=== PATIENT | female | born 1945 | race Caucasian/White ===

== ENCOUNTER 2021-09-11 19:23 | Inpatient (IN) | payer OTHER, MEDICAID, SELFPAY ==
[~2021-09-11] VITALS: Ht 154.9 cm; Wt 77.1 kg
[2021-09-11 19:28] VITALS: BP 115/56
--- NOTE | 2021-09-11 19:40 | NUR ---
PT TAKEN TO ER BED 11 VIA WHEELCHAIR
--- NOTE | 2021-09-11 20:00 | NUR ---
ERMD AT BEDSIDE
--- NOTE | 2021-09-11 20:15 | NUR ---
PT TO BATHROOM
[2021-09-11] MEDS ORDERED: NACL 0.9% 1,000 ML IV ONE (20:40)
--- NOTE | 2021-09-11 21:00 | NUR ---
PT BACK FROM BATHROOM LARGE AMOUT OF BLOOD LOSS NOTED. PT APPEARS WEAK AND PALE WILL ATTEMPT TO START IV TO BEGIN IVF. PER FAMILY PT IS A HARD STICK.
[2021-09-11 21:22] LABS: BASOPHILS % (AUTO) 0.1 % (0.0-2.0); EOSINOPHILS % (AUTO) 0.1 % (0.0-4.0); LYMPHOCYTES # (AUTO) 0.9 K/uL (2.5-16.5); MEAN CORPUSCULAR HEMOGLOBIN 31 pg (27-31); MEAN CORPUSCULAR HGB CONC 34 g/dL (33-37); MEAN CORPUSCULAR VOLUME 90.1 fL (80-94); MONOCYTES # (AUTO) 0.5 K/uL (0.8-1.0); MONOCYTES % (AUTO) 5.3 % (1.7-9.3); NEUTROPHILS # (AUTO) 8.3 K/uL (1.8-7.7); NEUTROPHILS % (AUTO) 85.5 % (42.2-75.2); PLATELET COUNT (AUTO) 176 K/uL (140-450); RED BLOOD CELL COUNT(AUTO) 2.04 MIL/uL (4.20-5.40); WHITE BLOOD COUNT (AUTO) 9.7 K/uL (4.8-10.8)
[2021-09-11 21:44] LABS: HEMOGLOBIN 6.3 g/dL (12.0-16.0)
[2021-09-11 21:45] LABS: HEMATOCRIT 18.4 % (36-48)
[2021-09-11 22:32] LABS: ALBUMIN 2.5 g/dL (3.4-5.0); ANION GAP 10.8 (8-16); ASPARTATE AMINOTRANSFERASE 13 U/L (15-37); CHLORIDE 111 mmol/L (98-107); CREATININE 0.5 mg/dL (0.6-1.3); GLUCOSE 187 mg/dL (74-106); POTASSIUM 3.8 mmol/L (3.5-5.1); SODIUM SERUM 143 mmol/L (136-145); TOTAL BILIRUBIN 0.3 mg/dL (0.0-1.0); UREA NITROGEN, BLOOD 18 mg/dL (7-18)
--- NOTE | 2021-09-11 22:35 | NUR ---
SWAB FOR MARILYNN SENT TO LAB
[2021-09-11] MEDS ORDERED: MORPHINE SULFATE 2 MG/ML SYR IVP PRN (22:55)
[2021-09-11] MEDS ORDERED: NACL 0.9% 1,000 ML IV SCH (22:55)
[2021-09-11] MEDS ORDERED: ONDANSETRON 4 MG/2 ML VIAL IM/IVP PRN (22:55)
[2021-09-11] MEDS ORDERED: HYDROcodone/APAP 5/325 MG 1 TAB TAB PO PRN (22:55)
[2021-09-11] MEDS ORDERED: DOCUSATE SODIUM 100 MG GELCAP PO PRN (22:55)
[2021-09-11] MEDS ORDERED: SODIUM PHOS / POTASSIUM PHOS 1 PKT PDR PO PRN (22:55)
[2021-09-11] MEDS ORDERED: ACETAMINOPHEN 325 MG TAB PO PRN (22:55)
[2021-09-11] MEDS ORDERED: MAG SULF 2000 MG/WATER PREMIX 50 ML IV PRN (22:55)
[2021-09-11] MEDS ORDERED: DEXTROSE 50% 50 ML SYR IVP PRN (23:00)
--- NOTE | 2021-09-11 23:00 | NUR ---
PT LAYING ON GURNEY WITH EYES CLOSED. RRE/U FAMILY AT BEDSIDE. NAD NOTED PENDING BED ASSIGNMENT
[2021-09-11 23:13] LABS: PROTHROMBIN TIME 10.8 secs (10.8-13.4)
[2021-09-11] MEDS ORDERED: DULO60EC1 PO (23:20)
[2021-09-11] MEDS ORDERED: SIMV-33 PO (23:20)
[2021-09-11] MEDS ORDERED: METF-1243 PO (23:20)
[2021-09-11 23:32] LABS: MAGNESIUM 1.7 mg/dL (1.8-2.4); PHOSPHORUS 2.8 mg/dL (2.5-4.9)
--- NOTE | 2021-09-12 | NUR ---
REPORT TO COLLIN BLACKMAN
--- NOTE | 2021-09-12 00:05 | NUR ---
Patient will be admitted to care of [facility]. Admited to TELE. Will go to room 3085. Belongings list completed. Report to
[2021-09-12 00:15] VITALS: BP 114/54
--- NOTE | 2021-09-12 00:30 | NUR ---
PT CAME UP VIA [employer]. REPORT GIVEN OVER THE PHONE FORM MARINE FIREFIGHTER NURSE, PT IS AOX4 ON ROOM AIR,SKIN INTACT SHE HAS A 20G ON LEFT AC INTACT AND ASYMPTOMATIC. MRSA SWAB DONE ADMISSION V/S FOLLOWS: T 98.4 P 98 R 20 B/P 114/54 02 100% ON ROOM AIR. DAUGHTER CALLED AND WAS UPDATED. ADMISSION QUESTIONS INCLUDING THE CONSENT FOR BLOOD TRANSFUSION TRANSLATED WITH [employer] . ALL FALLS PRECAUTIONS IN PLACE. DUE TO PT GENERALIZED WEAKNESS DUE TO ANEMIA.
--- NOTE | 2021-09-12 02:30 | NUR ---
PT CONTINUES ON BEDREST. SHE HAS NO C/O VOICED, ALL REQUESTED NEEDS ATTENDED BY STAFF. 1 UNIT OF PACKED RED BLOOD CELLS HUNG AND RUNNING AT 100MLS/HR. NO ADVERSE EFFECTS NOTED.
[2021-09-12 04:00] VITALS: BP 114/58
--- NOTE | 2021-09-12 04:30 | NUR ---
BLOOD TRANSFUSION ALMOST COMPLETED. NO ADVERSE REACTIONS NOTED. V/S FOLLOWS: T 98.4 P 112 R 22 B/P 114/58 02 98% ON ROOM AIR. PT ASSISTED WITH BED PIRES AND PASSED BLOODY URINE AND BLOOD CLOTS. PT WANTS TO SIT ON BED PIRES.
--- NOTE | 2021-09-12 05:16 | NUR ---
TRANSFUSION COMPLETED. PT HAD ANOTHER EPISODE OF MIGUEL RECTAL BLEEDING. PT WAS TURNED AND CHANGED V/S FOLLOWS: T 98.4 P 110 R 20 B/P 98/52 02 98% ON ROOM AIR.
--- NOTE | 2021-09-12 06:20 | NUR ---
2ND UNIT OF BLOOD STARTED. V/S S FOLLOWS: T 97.9 P 103 R 20 B/P 106/55 02 96% ON ROOM AIR. ALL FALLS PRECAUTIONS IN PLACE.
--- NOTE | 2021-09-12 07:30 | NUR ---
RECEIVED PATIENT FROM B2B SALES CONSULTANT NURSE FOR CONTINUITY OF CARE. PATIENT IS ON TELE MONITOR. A/A/O X4. RESPIRATORY EVEN AND UNLABORED, ON ROOM AIR. NO SIGN OF DISTRESS NOTED. SKIN WARM, DRY, NON DIAPHORETIC. IV ON LEFT AC 20G, INTACT AND PATENT, IS TRANSFUSING 2ND BAG OF RBC @100ML/HR. PATIENT DENIES ANY PAIN OR DISCOMFORT. ABLE TO MAKE NEED KNOWN. PLAN OF CARE DISCUSSED. PRECAUTION IN PLACE. CALL LIGHT WITHIN REACH. WILL CONTINUE TO MONITOR.
[2021-09-12] MEDS: BLOOD GLUCOSE MONITORING 1 DEV DEV FS SCH ×4 (07:45→20:38)
[2021-09-12 08:00] VITALS: BP 123/54
--- NOTE | 2021-09-12 08:51 | NUR ---
PATIENT HAS BEEN SCREENED AND CATEGORIZED HIGH NUTRITION RISK. PATIENT WILL BE SEEN WITHIN 1-2 DAYS OF ADMISSION. 09/12/21-09/13/21 REFERRAL FOR UNCONTROLLED DIABETES [address]
[2021-09-12] MEDS ORDERED: PANTOPRAZOLE 40 MG INJ VIAL IVP SCH ×2 (09:00→21:00)
--- NOTE | 2021-09-12 09:15 | NUR ---
BLOOD TRANSFUSION COMPLETED. NO SIGN OF REACTION. VS WNL. FAMILY AT BEDSIDE. PRECAUTION IN PLACE. CALL LIGHT WITHIN REACH. WILL CONTINUE TO MONITOR.
--- NOTE | 2021-09-12 09:40 | NUR ---
SCHEDULE MEDICATION GIVEN WITH EDUCATION, PATIENT VERBALIZED UNDERSTANDING. PATIENT TOLERATED WELL. NO SIGN OF DISTRESS NOTED. PRECAUTION IN PLACE. CALL LIGHT WITHIN REACH. WILL CONTINUE TO MONITOR.
--- NOTE | 2021-09-12 11:00 | NUR ---
FAMILY AT BEDSIDE. PATIENT IS RESTING IN BED, NO SIGN OF DISTRESS NOTED. PRECAUTION IN PLACE. CALL LIGHT WITHIN REACH. WILL CONTINUE TO MONITOR.
[2021-09-12 12:00] VITALS: BP 117/50
[2021-09-12 12:59] LABS: HEMATOCRIT 21.6 % (36-48); HEMOGLOBIN 7.5 g/dL (12.0-16.0)
--- NOTE | 2021-09-12 13:00 | NUR ---
PATIENT IS SITTING UP IN BED. NO SIGN OF DISTRESS NOTED. PRECAUTION IN PLACE. CALL LIGHT WITHIN REACH. WILL CONTINUE TO MONITOR.
[2021-09-12 13:11] LABS: ANION GAP 10.1 (8-16); CARBON DIOXIDE 24.8 mmol/L (21-32); CHLORIDE 110 mmol/L (98-107); CREATININE 0.5 mg/dL (0.6-1.3); GLUCOSE 156 mg/dL (74-106); POTASSIUM 3.9 mmol/L (3.5-5.1); SODIUM SERUM 141 mmol/L (136-145); UREA NITROGEN, BLOOD 19 mg/dL (7-18)
[2021-09-12] MEDS: DEXT 5% / NACL 0.45% 1,000 ML IV SCH (14:19)
--- NOTE | 2021-09-12 14:23 | NUR ---
PATIENT AWAKE, RESTING IN BED. NO SIGN OF DISTRESS NOTED. PRECAUTION IN PLACE. CALL LIGHT WITHIN REACH. WILL CONTINUE TO MONITOR.
--- NOTE | 2021-09-12 15:01 | NUR ---
09/12/21 RD INITIAL ASSESSMENT COMPLETED PLEASE REFER TO NUTRITION ASSESSMENT UNDER CARE ACTIVITY FOR ESTIMATED NUTRITIONAL NEEDS. 1. WHEN/IF MEDICALLY APPROPRIATE, ADVANCE TO [facility] 60 GM DIET 2. MONITOR BLOOD SUGAR AFTER EACH MEAL 3. RD TO FOLLOW-UP 3-5 DAYS, MODERATE RISK [address]
--- NOTE | 2021-09-12 15:50 | NUR ---
DR SMITH AT BEDSIDE TO EXPLAIN THE PROCEDURE TO PATIENT AND HER FAMILY. PATIENT AND FAMILY MEMBER AGREE WITH THE PROCEDURE. WILL OBTAIN THE CONSENT FOR EGD/COLONOSCOPY UNDER MODERATE SEDATION.
[2021-09-12] MEDS ORDERED: diphenhydrAMINE 50 MG/ML VIAL ONE (16:16)
[2021-09-12] MEDS ORDERED: MIDAZOLAM 5 MG/5 ML VIAL ONE (16:17)
[2021-09-12] MEDS ORDERED: fentaNYL citrate 0.05 MG/ML VIAL ONE (16:17)
--- NOTE | 2021-09-12 16:30 | NUR ---
PATIENT TRANSFER TO OR WITH NURSE.
--- NOTE | 2021-09-12 18:10 | NUR ---
PATIENT RETURN TO ROOM. VS WNL. NO SIGN OF DISTRESS NOTED. PATIENT IS RESTING IN BED. PRECAUTION IN PLACE. CALL LIGHT WITHIN REACH. WILL CONTINUE TO MONITOR.
[2021-09-12 18:11] VITALS: BP 133/56
[2021-09-12] MEDS ORDERED: MIDAZOLAM 2 MG/2 ML VIAL IVP ONE (18:20)
[2021-09-12] MEDS ORDERED: fentaNYL citrate 0.05 MG/ML VIAL IVP ONE (18:20)
[2021-09-12] MEDS: INSULIN LISPRO SLIDING SCALE 100 UNITS/ML VIAL SUBQ PRN (18:25)
--- NOTE | 2021-09-12 18:25 | NUR ---
BLOOD SUGAR CHECK 185. 2UNITS INSULIN GIVEN TO COVER. EDUCATION GIVEN TO PATIENT AND FAMILY MEMBER. THEY VERBALIZED UNDERSTANDING. PATIENT TOLERATED WELL. PRECAUTION IN PLACE. CALL LIGHT WITHIN REACH. WILL CONTINUE TO MONITOR.
[2021-09-12] MEDS ORDERED: MIDAZOLAM 2 MG/2 ML VIAL IVP SCH (19:00)
[2021-09-12] MEDS ORDERED: fentaNYL citrate 0.05 MG/ML VIAL IVP SCH (19:00)
--- NOTE | 2021-09-12 19:15 | NUR ---
ENDORSED PATIENT TO PSYCHIATRIC CLINICAL NURSE SPECIALIST TO CONTINUE OF CARE. PATIENT IS STABLE.
--- NOTE | 2021-09-12 19:16 | NUR ---
RECEIVED BEDSIDE ENDORSEMENT FROM AM RN. PATIENT IS WELL RESTED. NO ACUTE DISTRESS. RESPIRATION EVEN UNLABORED. IVF D5 NS 0.45% INFUSING AT 40 ML ON THE LAC. GRANDSON AT BEDSIDE. NO COMPLAINTS OF PAIN. ALL SAFETY PRECAUTIONS ARE IN PLACE. CALL LIGHT WITHIN REACH. WILL CONTINUE TO MONITOR.
[2021-09-12 20:00] VITALS: BP 125/51
[2021-09-12] MEDS: ATORVASTATIN 20 MG TAB PO SCH (20:35)
--- NOTE | 2021-09-12 20:40 | NUR ---
BLOOD GLUCOSE CHECKED 134.
--- NOTE | 2021-09-12 20:41 | NUR ---
SCHEDULED MEDS GIVEN PER MD ORDERED.
[2021-09-13] VITALS: BP 122/49
--- NOTE | 2021-09-13 00:18 | NUR ---
MADE ROUNDS. PT IS SLEEPING. CHEST RISE AND FALL. CALL LIGHT WITHIN REACH. SAFETY MEASURES IN PLACE.
[2021-09-13 04:00] VITALS: BP 114/51
[2021-09-13 05:22] LABS: BASOPHILS % (AUTO) 0.5 % (0.0-2.0); EOSINOPHILS # (AUTO) 0.1 K/uL (0-0.4); EOSINOPHILS % (AUTO) 0.8 % (0.0-4.0); LYMPHOCYTES # (AUTO) 1.7 K/uL (2.5-16.5); LYMPHOCYTES % (AUTO) 22.5 % (20.5-51.1); MEAN CORPUSCULAR HEMOGLOBIN 31 pg (27-31); MEAN CORPUSCULAR HGB CONC 35 g/dL (33-37); MEAN CORPUSCULAR VOLUME 88.5 fL (80-94); MONOCYTES # (AUTO) 0.6 K/uL (0.8-1.0); MONOCYTES % (AUTO) 7.9 % (1.7-9.3); NEUTROPHILS # (AUTO) 5.1 K/uL (1.8-7.7); NEUTROPHILS % (AUTO) 68.3 % (42.2-75.2); PLATELET COUNT (AUTO) 117 K/uL (140-450); RED BLOOD CELL COUNT(AUTO) 1.82 MIL/uL (4.20-5.40); RED CELL DISTRIBUTION WIDTH 14.7 % (11.6-13.7); WHITE BLOOD COUNT (AUTO) 7.5 K/uL (4.8-10.8)
[2021-09-13 05:27] LABS: ANION GAP 10.5 (8-16); CARBON DIOXIDE 23.9 mmol/L (21-32); CHLORIDE 110 mmol/L (98-107); CREATININE 0.5 mg/dL (0.6-1.3); GLUCOSE 141 mg/dL (74-106); POTASSIUM 3.4 mmol/L (3.5-5.1); SODIUM SERUM 141 mmol/L (136-145); UREA NITROGEN, BLOOD 11 mg/dL (7-18)
[2021-09-13 05:29] LABS: CHOL/HDL RATIO 3.2 (1-4.5)
[2021-09-13 06:07] LABS: HEMATOCRIT 16.1 % (36-48); HEMOGLOBIN 5.6 g/dL (12.0-16.0)
[2021-09-13] MEDS: BLOOD GLUCOSE MONITORING 1 DEV DEV FS SCH ×4 (06:40→21:09)
--- NOTE | 2021-09-13 06:40 | NUR ---
BLOOD GLUCOSE 126 NO COVERAGE GIVEN
--- NOTE | 2021-09-13 06:40 | NUR ---
NO BLEEDING NOTED AT THIS TIME.
--- NOTE | 2021-09-13 07:20 | NUR ---
BEDSIDE ENDORSEMENT GIVEN TO AM RN. PATIENT IS STABLE.
--- NOTE | 2021-09-13 07:22 | NUR ---
RECEIVED REPORT FROM NIGHT NURSE PATIENT IS VINCENTIAN SPEAKING WITH COMPLAIN OF RECTAL BLEEDING,AAOX4 SINUS RYTHM, LAST BLOOD SUGAR 126 MG/DL, LAST BOWEL MOVEMENT 09/12/21, SKIN INTACT, IV INTACT ON LEFT AC, EGD/COLONOSCOPY DONE ON 09/12/21, S/P 2 UNITS PRBC 09/12/21. SAFETY MEASURES IN PLACE AND CALL LIGHT WITHIN REACH.
--- NOTE | 2021-09-13 07:40 | NUR ---
SPOKE WITH DR LUCIO FOR CRITICAL VALUE HGB 5.6 AND HCT 16.1 POTASSIUM 3.4 RECEIVED ORDER TO TRANSFUSE 2 UNITS PRBC.
[2021-09-13 08:00] VITALS: BP 128/50
[2021-09-13] MEDS: FERROUS SULFATE 325 MG TABEC PO SCH ×2 (08:22→16:53)
[2021-09-13] MEDS: DULoxetine 30 MG CAPDR PO SCH (08:22)
[2021-09-13] MEDS: PSYLLIUM 12.2 GM/PKT PO SCH (08:23)
[2021-09-13] MEDS: LACTULOSE 20 GM/30 ML UDC PO SCH (08:23)
[2021-09-13] MEDS: POTASSIUM CHLORIDE 10 MEQ TABER PO PRN (08:24)
--- NOTE | 2021-09-13 08:30 | NUR ---
medication scheduled given pt tolerated well,
--- NOTE | 2021-09-13 11:30 | NUR ---
STARTED BLOOD TRANSFUSION BUT PT ACCIDENTALLY PULLED IV AND LEAKING HAVE TO STOP TRANSFUSION AND SEND TO LAB BUT UNABLE TO GET IV INSERTION PATIENT IS HARD STICK. BLOOD WASTED AND UNABLE TO TRANSFUSE. LAB AWARE.
[2021-09-13 12:00] VITALS: BP 118/52
[2021-09-13] MEDS: DEXT 5% / NACL 0.45% 1,000 ML IV SCH (12:56)
--- NOTE | 2021-09-13 13:30 | NUR ---
BLOOD TRANSFUSION STARTED CHECK VITAL SIGNS BP 131/50 ND 93 RR 20 TEMP 99.1 O2 SAT 100% PT IS STABLE.
[2021-09-13 16:00] VITALS: BP 111/53
--- NOTE | 2021-09-13 16:30 | NUR ---
I UNIT PRBC COMPLETE VITAL SIGNS TAKEN PT STABLE AND NO TRANSFUSION REACTION NOTED.
--- NOTE | 2021-09-13 19:29 | NUR ---
ENDORSED TO NIGHT NURSE FOR CONTINUITY OF CARE.
--- NOTE | 2021-09-13 19:30 | NUR ---
RECEIVED REPORT FROM AM RN. PATIENT IS AWAKE IN UPRIGHT POSITION. NO S/S OF RESPIRATORY DISTRESS. RESPIRATION EVEN UNLABORED. IVF D5 0.45% NS INFUSING AT 40 ML/HR ON THE LEFT FOREARM. ALL SAFETY PRECAUTIONS ARE IN PLACE. CALL LIGHT WITHIN REACH. WILL CONTINUE TO MONITOR.
[2021-09-13 20:00] VITALS: BP 122/58
[2021-09-13] MEDS: ATORVASTATIN 20 MG TAB PO SCH (21:05)
--- NOTE | 2021-09-13 21:05 | NUR ---
DUE MEDS GIVEN PER MD ORDERED.
[2021-09-14] VITALS: BP 120/60
--- NOTE | 2021-09-14 02:14 | NUR ---
MADE ROUNDS . PT IS SLEEPING. NO SOB NOTED
--- NOTE | 2021-09-14 03:25 | NUR ---
STARTED INFUSING PRBC. V/S MONITORED AND RECORDED. PATIENT IS CLOSELY WATCH. PATIENT IS STABLE. AFEBRILE.
[2021-09-14 04:00] VITALS: BP 121/53
--- NOTE | 2021-09-14 05:43 | NUR ---
PATIENT AWAKE, ALERT NO SOB , NO ITCHING, NO PAIN , NO FEVER NOTED AT THIS TIME. PRBC STILL INFUSING.
[2021-09-14] MEDS: BLOOD GLUCOSE MONITORING 1 DEV DEV FS SCH ×4 (06:45→20:47)
--- NOTE | 2021-09-14 07:28 | NUR ---
RECEIVED REPORT FROM ELECTRICAL RESEARCH ENGINEER NURSE FOR CONTINUITY OF CARE, POC DISCUSSED. PT IS RESTING IN BED ON ROOM AIR WITH CHEST RISING AND FALLING EVEN AND UNLABORED. PT HAD JUST FINISHED BLOOD TRANSFUSION REPORTED FROM ELECTRICAL RESEARCH ENGINEER NURSE AT ROUGHLY 0600, NO REACTION NOTED. PT VITAL SIGNS STABLE. PT ON TELE MONITOR SHOWING SINUS RHYTHM. NO BM NOTED DURING ELECTRICAL RESEARCH ENGINEER. PT HAS A LEFT FOREARM 20G RUNNING D5 HALF NS @ 40. ALL SAFETY MEASURES IN PLACE, CALL LIGHT WITHIN REACH, WILL CONTINUE TO MONITOR.
--- NOTE | 2021-09-14 07:36 | NUR ---
1 BAG PRBC WAS GIVEN. NO ADVERSE REACTION NOTED. V/S STABLE.
--- NOTE | 2021-09-14 07:38 | NUR ---
ENDORSED TO AM RN FOR CONTINUITY OF CARE. PT IN STABLE CONDITION.
[2021-09-14 08:00] VITALS: BP 130/57
[2021-09-14] MEDS: FERROUS SULFATE 325 MG TABEC PO SCH ×2 (08:38→16:31)
[2021-09-14] MEDS: DULoxetine 30 MG CAPDR PO SCH (08:38)
[2021-09-14] MEDS: LACTULOSE 20 GM/30 ML UDC PO SCH (08:39)
[2021-09-14] MEDS: PSYLLIUM 12.2 GM/PKT PO SCH (08:39)
--- NOTE | 2021-09-14 08:41 | NUR ---
JHONATHAN MEDICATION ADMINISTERED PER MD ORDER. PT EDUCATION PROVIDED AND PT NODDED IN UNDERSTANDING. PT TOLERATED ADMINISTRATION. PT DENIES PAIN AT THIS TIME. SKIN INTACT. PT IV IS PATENT AND INTACT RUNNING D5 0.45 NS AT 40 ML. ALL SAFETY MEASURES IN PLACE, CALL LIGHT WITHIN REACH. WILL CONTINUE TO MONITOR.
[2021-09-14 09:25] LABS: BASOPHILS % (AUTO) 0.7 % (0.0-2.0); EOSINOPHILS # (AUTO) 0.1 K/uL (0-0.4); EOSINOPHILS % (AUTO) 1.6 % (0.0-4.0); HEMATOCRIT 23.6 % (36-48); LYMPHOCYTES # (AUTO) 1.1 K/uL (2.5-16.5); LYMPHOCYTES % (AUTO) 23.6 % (20.5-51.1); MEAN CORPUSCULAR HEMOGLOBIN 30 pg (27-31); MEAN CORPUSCULAR HGB CONC 34 g/dL (33-37); MEAN CORPUSCULAR VOLUME 89.2 fL (80-94); MONOCYTES # (AUTO) 0.4 K/uL (0.8-1.0); MONOCYTES % (AUTO) 8.9 % (1.7-9.3); NEUTROPHILS # (AUTO) 3.1 K/uL (1.8-7.7); NEUTROPHILS % (AUTO) 65.2 % (42.2-75.2); PLATELET COUNT (AUTO) 134 K/uL (140-450); RED BLOOD CELL COUNT(AUTO) 2.64 MIL/uL (4.20-5.40); RED CELL DISTRIBUTION WIDTH 14.9 % (11.6-13.7); WHITE BLOOD COUNT (AUTO) 4.8 K/uL (4.8-10.8)
[2021-09-14 09:33] LABS: ANION GAP 8.9 (8-16); CARBON DIOXIDE 27.3 mmol/L (21-32); CHLORIDE 108 mmol/L (98-107); CREATININE 0.5 mg/dL (0.6-1.3); GLUCOSE 137 mg/dL (74-106); POTASSIUM 3.2 mmol/L (3.5-5.1); SODIUM SERUM 141 mmol/L (136-145); UREA NITROGEN, BLOOD 4 mg/dL (7-18)
--- NOTE | 2021-09-14 10:16 | NUR ---
PT REPORTS 7/10 CHEST PAIN; VITAL SIGNS WNL, 132/76 BP, 86 HR, 98% O2, 18 RR. PT REPORTS PAIN RELIEVING WITHIN A FEW MINUTES. REFUSES ANY PAIN MEDICATION.
[2021-09-14] MEDS: POTASSIUM CHLORIDE 10 MEQ TABER PO PRN (11:16)
[2021-09-14] MEDS: INSULIN LISPRO SLIDING SCALE 100 UNITS/ML VIAL SUBQ PRN (11:22)
--- NOTE | 2021-09-14 11:26 | NUR ---
PT BLOOD GLUCOSE IS 154, PER SLIDING SCALE 2 UNITS OF INSULIN ADMINISTERED. PRN POTASSIUM ADMINISTERED PER MD ORDER. PT DENIES PAIN. ALL SAFETY MEASURES IN PLACE. CALL LIGHT WITHIN REACH. WILL CONTINUE TO MONITOR.
[2021-09-14 12:00] VITALS: BP 130/59
[2021-09-14] MEDS: DEXT 5% / NACL 0.45% 1,000 ML IV SCH (13:26)
--- NOTE | 2021-09-14 14:00 | NUR ---
PT HAS BEEN GIVEN A FULL BED BATH WITH STAND BY ASSISTANCE. PT TOLERATED CLEANING BY HERSELF. PT PROVIDED WITH CLEAN LINENS AND GOWN. ALL NEEDS ARE MET. NEW FLUIDS STARTED AND BEING ADMINISTERED. PT IV IS PATENT AND INTACT. ALL SAFETY MEASURES IN PLACE. CALL LIGHT WITHIN REACH. WILL CONTINUE TO MONITOR.
--- NOTE | 2021-09-14 14:27 | NUR ---
PT REPORTED IV BEEPING. RESOLVED ISSUE. ALL OTHER NEEDS MET AT THIS TIME. ALL SAFETY MEASURES IN PLACE. CALL LIGHT WITHIN REACH. WILL CONTINUE TO MONITOR.
[2021-09-14 16:00] VITALS: BP 134/60
--- NOTE | 2021-09-14 16:31 | NUR ---
JHONATHAN MEDICATION ADMINISTERED PER MD ORDER, PT TOLERATED ADMINISTRATION. PT BLOOD GLUCOSE IS 87, NO INSULIN NEEDED PER SLIDING SCALE. ALL SAFETY MEASURES IN PLACE. CALL LIGHT WITHIN REACH. WILL CONTINUE TO MONITOR.
--- NOTE | 2021-09-14 17:34 | NUR ---
PT IS STABLE IN BED WITH NO ACUTE S/S OF DISTRESS. ALL SAFETY MEASURES IN PLACE. CALL LIGHT WITHIN REACH. WILL CONTINUE TO MONITOR.
--- NOTE | 2021-09-14 18:31 | NUR ---
PT HAS REMAINED STABLE THROUGHOUT THE SHIFT. ALL SAFETY MEASURES IN PLACE. CALL LIGHT WITHIN REACH. WILL CONTINUE TO MONITOR.
--- NOTE | 2021-09-14 19:03 | NUR ---
PT BEEN ENDORSED TO BARRATTE OPERATOR IN STABLE CONDITION. POC DISCUSSED.
--- NOTE | 2021-09-14 19:05 | NUR ---
RECEIVED BEDSIDE ENDORSEMENT FROM AM RN. PATIENT IN SEMI FOWLERS POSITION. NO ACUTE DISTRESS NOTED, ON ROOM AIR. IVF D5 0.45% NS RUNNING AT 40 MLS. ALL SAFETY PRECAUTIONS ARE IN PLACE. CALL LIGHT WITHIN REACH. DENIES PAIN.
[2021-09-14 20:00] VITALS: BP 128/55
[2021-09-14] MEDS: FAMOTIDINE 20 MG/2 ML VIAL IV SCH (20:38)
[2021-09-14] MEDS: ATORVASTATIN 20 MG TAB PO SCH (20:38)
--- NOTE | 2021-09-14 20:38 | NUR ---
ALL SCHEDULED 2100 MEDS ARE GIVEN ORDERED. NEEDS ATTENDED TO.
[2021-09-15] VITALS: BP 123/55
--- NOTE | 2021-09-15 02:55 | NUR ---
ROUNDED PATIENT , PT JUST CAME FROM THE RESTROOM. NO SOB NOTED..
[2021-09-15 04:00] VITALS: BP 128/53
[2021-09-15 06:05] LABS: BASOPHILS % (AUTO) 0.4 % (0.0-2.0); EOSINOPHILS # (AUTO) 0.1 K/uL (0-0.4); EOSINOPHILS % (AUTO) 1.8 % (0.0-4.0); HEMATOCRIT 22.9 % (36-48); HEMOGLOBIN 7.7 g/dL (12.0-16.0); LYMPHOCYTES # (AUTO) 1.1 K/uL (2.5-16.5); LYMPHOCYTES % (AUTO) 22.6 % (20.5-51.1); MEAN CORPUSCULAR HEMOGLOBIN 30 pg (27-31); MEAN CORPUSCULAR HGB CONC 34 g/dL (33-37); MEAN CORPUSCULAR VOLUME 89.9 fL (80-94); MONOCYTES # (AUTO) 0.5 K/uL (0.8-1.0); MONOCYTES % (AUTO) 9.9 % (1.7-9.3); NEUTROPHILS # (AUTO) 3.2 K/uL (1.8-7.7); NEUTROPHILS % (AUTO) 65.3 % (42.2-75.2); PLATELET COUNT (AUTO) 161 K/uL (140-450); RED BLOOD CELL COUNT(AUTO) 2.55 MIL/uL (4.20-5.40); RED CELL DISTRIBUTION WIDTH 14.9 % (11.6-13.7); WHITE BLOOD COUNT (AUTO) 4.9 K/uL (4.8-10.8)
[2021-09-15 06:16] LABS: ANION GAP 8.3 (8-16); CARBON DIOXIDE 29.2 mmol/L (21-32); CHLORIDE 111 mmol/L (98-107); CREATININE 0.5 mg/dL (0.6-1.3); GLUCOSE 108 mg/dL (74-106); POTASSIUM 3.5 mmol/L (3.5-5.1); SODIUM SERUM 145 mmol/L (136-145); UREA NITROGEN, BLOOD 2 mg/dL (7-18)
[2021-09-15] MEDS: BLOOD GLUCOSE MONITORING 1 DEV DEV FS SCH ×4 (07:30→21:08)
--- NOTE | 2021-09-15 07:48 | NUR ---
RECEIVED REPORT FROM DISPLAY CARD WRITER RN FOR CONTINUITY OF CARE. PT IS IN BED AAOX4. NO APPARENT S/S OF ACUTE DISTRESS. BREATHING EVEN AND UNLABORED DENIES ANY ACTIVE BLEEDING NO C/O CP, SOB OR PAIN. LEFT FOREARM 20G, INTACT/PATENT. POC DISCUSSED. BED IN LOW/LOCKED POSITION. CALL LIGHT WITHIN REACH. PT ENCOURAGED TO CALL FOR ANY NEEDS/ASSISTANCE.CALLS LIGHT WITHIN REACH
--- NOTE | 2021-09-15 07:48 | NUR ---
ENDORSED TO AM NURSE FOR CONTINUITY OF CARE. PT IS IN STABLE CONDITION.
[2021-09-15 08:00] VITALS: BP 125/61
[2021-09-15] MEDS: FERROUS SULFATE 325 MG TABEC PO SCH ×2 (08:39→16:22)
[2021-09-15] MEDS: FAMOTIDINE 20 MG/2 ML VIAL IV SCH (08:39)
[2021-09-15] MEDS: DULoxetine 30 MG CAPDR PO SCH (08:39)
[2021-09-15] MEDS: LACTULOSE 20 GM/30 ML UDC PO SCH (08:39)
[2021-09-15] MEDS: PSYLLIUM 12.2 GM/PKT PO SCH ×3 (08:39→21:02)
--- NOTE | 2021-09-15 10:11 | NUR ---
PATIENT IN BED NO COMPLAINS, NO SOD NOTED, GOT MORNING MEDICATION, TOLERATED WELL, ALL SAFETY MEASURES ON PLACE CALLS LIGHT WITHIN REACH
[2021-09-15 12:00] VITALS: BP 126/59
--- NOTE | 2021-09-15 12:07 | NUR ---
PATIENT IN BED NO COMPLAINS, NO SOD NOTED, ALL SAFETY MEASURES ON PLACE CALLS LIGHT WITHIN REACH
--- NOTE | 2021-09-15 14:18 | NUR ---
PATIENT STABLE , NOL COMPLAINSS, PATIENT LEFT FOR CT SCAN
--- NOTE | 2021-09-15 15:08 | NUR ---
DC PLANN[age] YRS OLD FEMALE PATIENT WAS ADMITTED FROM HOME WITH A DX OF GI BLEED PATIENT HAS A HX OF GASTRIC ULCER HEMORRHOIDS, DIVERTICULITIS AND DM. H/H 6.3/18.4 . 2 UNIT OF PRBC GIVEN IMPROVED TO 7.5. DR SMITH PERFORMED EGD AND COLONOSCOPY NO DEFINITE SOURCE OF BLEEDING IDENTIFIED. ADMINISTERED IVF AND CONTINUED HOME MEDS CONSULTED WITH DESIGN MAKER. DC PLAN TO GO HOME WHEN STABLE. CM TO FOLLOW Addendum: 09/16/21 at 1545 by Estefania Son RN DC PLANNING: RECEIVED A CALL FROM MACHELLE STATED THAT HOME HEALTH IS ARRANGED WITH [facility] [phone] AND 2 DME EQUIPMENT WALKER AND BED SIDE COMMODE WILL BE DELIVERED [employer] PHONE # [phone]. NOTIFIED PT AND PT'S DAUGHTER PANCHITO. CM TO FOLLOW
[2021-09-15 16:00] VITALS: BP 116/68
--- NOTE | 2021-09-15 17:30 | NUR ---
PATIENT IN BED NO COMPLAINS, NO SOD NOTED, PATIENT WAS EDUCATED TO INFORMED A NURSE FOR ANY BOWEL MOVEMENT IN ORDER TO COLLECT STOOL SAMPLE, PATIENT DID NOT HAD ONE YET WWILL ENDORSE IT TO ENGINEERING PROFESSOR TO COLLECT THE SAMPLE STOOL FOR OCCULT BLOOD .ALL SAFETY MEASURES ON PLACE CALLS LIGHT WITHIN REACH
--- NOTE | 2021-09-15 19:19 | NUR ---
FULL BEDSIDE REPORT GIVEN TO FINISHER MAP AND CHART NURSE
--- NOTE | 2021-09-15 19:30 | NUR ---
RECEIVED REPORT AT BEDSIDE FOR CONTINUITY OF CARE, PT LYING IN BED WITH DINNER TRAY IN FRONT OF HER, PT STATES THAT SHE HAS RECEIVED TOO MUCH FOOD AND ONLY WANTS TO EAT THE SALAD. SHE IS AOX4 ON ROOM AIR WITH 2 IV SITES 20G ON LEFT F/A; WHICH IS SALINE LOCKED AT THIS TIME. ALL FALLS PRECAUTIONS IN PLACE.
[2021-09-15 20:00] VITALS: BP 131/59
--- NOTE | 2021-09-15 20:00 | NUR ---
PT SITTING UP IN BED WATCHING TV SHE HAS NO C/O VOICED V/S FOLLOWS: T 98.2 P 82 R 20 B/P 131/59 02 97% ON ROOM AIR. PT REMINDED TO USE HAT ON THE TOILET WHEN HAVING A BM SO THAT A SAMPLE CAN BE COLLECTED TO TEST FOR BLOOD IN THE STOOL. PT VERBALIZED ACKNOWLEDGEMENT.
[2021-09-15] MEDS: ATORVASTATIN 20 MG TAB PO SCH (21:02)
--- NOTE | 2021-09-15 21:30 | NUR ---
PT FINGERSTICK IS 97, NO HUMALOG COVERAGE NEEDED. PT GIVEN ORDERED LIPITOR AND METAMUCIL SHE WAS ALSO GIVEN EXTRA JUICE. SHE WAS REMINDED ABOUT THE STOOL SAMPLE AND VERBALIZED ACKNOWLEDGEMENT. ALL ORDERED PRECAUTIONS IN PLACE.
[2021-09-16] VITALS: BP 116/60
--- NOTE | 2021-09-16 | NUR ---
PT IN BED RESTING WITH EYES CLOSED NO S/S OF PAIN OR DISTRESS NOTED. ALL ORDERED PRECAUTIONS IN PLACE.
[2021-09-16 04:00] VITALS: BP 119/53
[2021-09-16 06:06] LABS: BASOPHILS % (AUTO) 0.3 % (0.0-2.0); EOSINOPHILS # (AUTO) 0.1 K/uL (0-0.4); EOSINOPHILS % (AUTO) 2.3 % (0.0-4.0); HEMATOCRIT 23.7 % (36-48); HEMOGLOBIN 8.1 g/dL (12.0-16.0); LYMPHOCYTES # (AUTO) 0.8 K/uL (2.5-16.5); LYMPHOCYTES % (AUTO) 18.4 % (20.5-51.1); MEAN CORPUSCULAR HEMOGLOBIN 31 pg (27-31); MEAN CORPUSCULAR HGB CONC 34 g/dL (33-37); MEAN CORPUSCULAR VOLUME 89.5 fL (80-94); MONOCYTES # (AUTO) 0.4 K/uL (0.8-1.0); MONOCYTES % (AUTO) 8.2 % (1.7-9.3); NEUTROPHILS # (AUTO) 3.2 K/uL (1.8-7.7); NEUTROPHILS % (AUTO) 70.8 % (42.2-75.2); PLATELET COUNT (AUTO) 206 K/uL (140-450); RED BLOOD CELL COUNT(AUTO) 2.65 MIL/uL (4.20-5.40); RED CELL DISTRIBUTION WIDTH 14.9 % (11.6-13.7); WHITE BLOOD COUNT (AUTO) 4.6 K/uL (4.8-10.8)
--- NOTE | 2021-09-16 06:30 | NUR ---
PT FINGERSTICK IS 109 NO HUMALOG COVERAGE NEEDED. PT GIVEN PRUNE JUICE DUE TO DIFFFICULTY HAVING A BM. PT REMINDED ABOUT THE NEEDED STOOL SAMPLE.
[2021-09-16 06:31] LABS: ANION GAP 5.7 (8-16); CARBON DIOXIDE 32.9 mmol/L (21-32); CHLORIDE 111 mmol/L (98-107); CREATININE 0.5 mg/dL (0.6-1.3); GLUCOSE 109 mg/dL (74-106); POTASSIUM 3.6 mmol/L (3.5-5.1); SODIUM SERUM 146 mmol/L (136-145); UREA NITROGEN, BLOOD 2 mg/dL (7-18)
[2021-09-16 06:32] LABS: MAGNESIUM 2.2 mg/dL (1.8-2.4); PHOSPHORUS 4.2 mg/dL (2.5-4.9)
[2021-09-16] MEDS: BLOOD GLUCOSE MONITORING 1 DEV DEV FS SCH ×2 (07:30→12:08)
--- NOTE | 2021-09-16 07:33 | NUR ---
RECEIVED REPORT FROM SOLAR ENERGY SYSTEMS DESIGNER RN FOR CONTINUITY OF CARE. PT IS IN BED AAOX4. NO APPARENT S/S OF ACUTE DISTRESS. BREATHING EVEN AND UNLABORED DENIES ANY ACTIVE BLEEDING NO C/O CP, SOB OR PAIN. LEFT FOREARM 20G, AND LEFT AC 20G INTACT/PATENT. POC DISCUSSED. BED IN LOW/LOCKED POSITION. CALL LIGHT WITHIN REACH. PT ENCOURAGED TO CALL FOR ANY NEEDS/ASSISTANCE.CALLS LIGHT WITHIN REACH
[2021-09-16 08:00] VITALS: BP 114/62
[2021-09-16] MEDS ORDERED: ASCORBIC ACID 500 MG TAB PO SCH (09:00)
[2021-09-16] MEDS: FERROUS SULFATE 325 MG TABEC PO SCH (09:13)
[2021-09-16] MEDS: DULoxetine 30 MG CAPDR PO SCH (09:14)
[2021-09-16] MEDS: PSYLLIUM 12.2 GM/PKT PO SCH (09:15)
[2021-09-16] MEDS ORDERED: VITC500 PO (10:28)
[2021-09-16] MEDS ORDERED: FER325 PO (10:28)
--- NOTE | 2021-09-16 10:28 | NUR ---
PATIENT IN BED NO COMPLAINS, NO SOD NOTED, GOT MORNING MEDICATION, TOLERATED WELL, ALL SAFETY MEASURES ON PLACE CALLS LIGHT WITHIN REACH
[2021-09-16 10:30] VITALS: BP 114/62
[2021-09-16 12:00] VITALS: BP 127/66
--- NOTE | 2021-09-16 12:00 | NUR ---
PATIENT IN BED NO COMPLAINS, NO SOD NOTED, ALL SAFETY MEASURES ON PLACE CALLS LIGHT WITHIN REACH
[2021-09-16] MEDS: INSULIN LISPRO SLIDING SCALE 100 UNITS/ML VIAL SUBQ PRN (12:08)
--- NOTE | 2021-09-16 13:44 | NUR ---
PATIENT IN BED NO COMPLAINS, NO SOD NOTED, PATIENT GETTING DISCHARGED TODAY, DISCHARGE EDUCATION GIVEN IV REMOVED SKIN INTACT, BLEEDING CONTROLLED, WAITHIN FOR Her daughter to pick her up , ALL SAFETY MEASURES ON PLACE CALLS LIGHT WITHIN REACH Addendum: 09/16/21 at 1449 by Hipolito Morris RN RN patient walked to the front [facility], accompiend with her daughter
[2021-09-16 13:48] LABS: FERRITIN 13 ng/mL (15 - 150); FOLIC ACID > 20.00 ng/mL (>3.0)
[2021-09-16] MEDS ORDERED: FERROUS SULFATE 325 MG TABEC PO SCH (17:00)
== END 2021-09-16 14:50 | disposition home or self-care (01) | DRG 393 ==
LOC: MED 19:23 → MTU 22:52
PROVIDERS: ADMIT Hospitalist; ATTEND Hospitalist
PROC: 30233N1 Transfusion of Nonautologous Red Blood Cells into Peripheral Vein, Percutaneous Approach (ICD-10-PCS; 2021-09-12)
PROC: 0DB78ZX Excision of Stomach, Pylorus, Via Natural or Artificial Opening Endoscopic, Diagnostic (ICD-10-PCS; principal; 2021-09-12 18:00)
PROC: 0DBH8ZZ Excision of Cecum, Via Natural or Artificial Opening Endoscopic (ICD-10-PCS; 2021-09-12 18:00)
DX: K63.5 Polyp of colon (principal); E43 Unspecified severe protein-calorie malnutrition; D62 Acute posthemorrhagic anemia; K76.0 Fatty (change of) liver, not elsewhere classified; K86.89 Other specified diseases of pancreas; M47.814 Spondylosis without myelopathy or radiculopathy, thoracic region; K64.8 Other hemorrhoids; K29.70 Gastritis, unspecified, without bleeding; K57.30 Diverticulosis of large intestine without perforation or abscess without bleeding; E66.9 Obesity, unspecified; E11.65 Type 2 diabetes mellitus with hyperglycemia; Z20.822 Contact with and (suspected) exposure to COVID-19; M47.815 Spondylosis without myelopathy or radiculopathy, thoracolumbar region; E87.6 Hypokalemia; E83.42 Hypomagnesemia; E78.5 Hyperlipidemia, unspecified; J84.10 Pulmonary fibrosis, unspecified; Z90.49 Acquired absence of other specified parts of digestive tract; Z87.11 Personal history of peptic ulcer disease; Z68.32 Body mass index [BMI] 32.0-32.9, adult
CPT/HCPCS: 36415; 36430; 71045; 80048; 80053; 82150; 82272; 82607; 82728; 82746; 82948; 83036; 83540; 83690; 83735; 84100; 85018; 85025; 85045; 85610; 85651; 85730; 86140; 86677; 86886; 86900; 86901; 86920; 87081; 88305; 93005; 96360; 99285; C9113; J1200; J2250; J3010; J3490; J7030; P9016; Q0092; Q9967